=== PATIENT | female | born 1995 | race Caucasian/White ===

== ENCOUNTER 2017-01-26 15:01 | Emergency (ER) | payer OTHER ==
[2017-01-26 15:01] VITALS: BMI 21.2
--- NOTE | 2017-01-26 16:10 | C.PDOC ---
History Of Present Illness 21 y/o female presents to ED with c/o digitally and positionally reproducible left sided parasternal chest pain for 1 week. Patient notes pain developed after having a cough. Denies fever, chills, headache, nausea, vomiting, shortness of breath, diaphoresis, rash, or other associated symptoms. Time Seen by Provider: 01/26/17 15:59 Chief Complaint (Nursing): Chest Pain History Per: Patient History/Exam Limitations: no limitations Onset/Duration Of Symptoms: Days Current Symptoms Are (Timing): Still Present Quality: "Pain" Associated Symptoms: denies: Nausea, Dyspnea, Diaphoresis Exacerbating Factors: Movement Recent travel outside of the [place]: No Past Medical History Reviewed: Historical Data, Nursing Documentation, Vital Signs Vital Signs: Last Vital Signs Temp 98 F 01/26/17 16:24 Pulse 73 01/26/17 16:24 Resp 18 01/26/17 16:24 BP 99/72 L 01/26/17 16:24 Pulse Ox 99 01/26/17 16:24 - Medical History PMH: No Chronic Diseases Family History: States: Unknown Family Hx - Social History Hx Alcohol Use: Yes Hx Substance Use: No - Immunization History Hx Influenza Vaccination: No Hx Pneumococcal Vaccination: No Review Of Systems Except As Marked, All Systems Reviewed And Found Negative. Constitutional: Negative for: Fever, Chills, Sweats Cardiovascular: Positive for: Chest Pain Respiratory: Negative for: Shortness of Breath, Wheezing Gastrointestinal: Negative for: Nausea, Vomiting Skin: Negative for: Rash Physical Exam - Physical Exam Appears: Non-toxic, No Acute Distress Skin: Normal Color, Warm, Dry, No Rash Head: Atraumatic, Normacephalic Chest: Symmetrical, Tenderness (mild, left sided chest tenderness to palpation ) Cardiovascular: Rhythm Regular, No Murmur Respiratory: Normal Breath Sounds, No Rales, No Rhonchi, No Wheezing Gastrointestinal/Abdominal: Soft, No Tenderness Back: Normal Inspection Extremity: Normal ROM, Capillary Refill (< 2 sec. ) Neurological/Psych: Oriented x3, Normal Speech, Normal Cognition ED Course And Treatment ECG: Interpreted By Me ECG Rhythm: Sinus Rhythm ECG Interpretation: Normal Rate From EC (bpm) O2 Sat by Pulse Oximetry: 100 (RA) Pulse Ox Interpretation: Normal Medical Decision Making Medical Decision Making: digitally and positionally reproducable L parasternal discomfort x 1 week, after a cough which has since resolved, normal lung sounds, normal EKG, no rash - c/w Costochondritis. Disposition Doctor Will See Patient In The: Office Counseled Patient/Family Regarding: Studies Performed, Diagnosis - Disposition Referrals: [facility] [Outside] Disposition: HOME/ ROUTINE Disposition Time: 16:10 Condition: GOOD Additional Instructions: ice packs to affected area 1/2 hour per hour, nothing hot. Motrin 400-600 mg every 6h as needed Pepcid 20 mg @ night to prevent stomach irritation from the motrin no heavy lifting for 1 week Follow-up in our Clinic as needed Instructions: Costochondritis (ED) - Clinical Impression Clinical Impression: Chest discomfort
[2017-01-26 16:27] VITALS: BP 99/72; PULSE 73; RESP 18; TEMP 98
[2017-01-26 16:42] VITALS: O2SAT 100
--- NOTE | 2017-01-31 14:03 | CARD ---
APPROVED REPORT EKG Measurement Heart [id number] <Conclusion> Normal sinus rhythm with sinus arrhythmia Normal ECG
== END 2017-01-26 16:25 | disposition home or self-care (01) ==
LOC: C.ER 15:01
DX: R07.89 Other chest pain (principal)

== ENCOUNTER 2018-03-22 12:11 | Emergency (ER) | payer OTHER ==
[2018-03-22 12:18] VITALS: BMI 26.5
[2018-03-22 12:20] VITALS: TEMP 98.8
[2018-03-22] MEDS ORDERED: Alum-Mag Hydrox-Simethicone Susp (30 mL) PO STA (13:14)
[2018-03-22] MEDS ORDERED: Alum-Mag Hydrox-Simethicone Susp (30 mL) ONE (13:24)
--- NOTE | 2018-03-22 13:47 | C.PDOC ---
History Of Present Illness 22 y/o F c no PMHx p/w chest pain x 2 days. Pain is midchest, radiating down to epigastric area, sharp, intermittent, starting at rest while lying down, lasting about 30 seconds yesterday and about 2 minutes today. Denies any current symptoms. Denies fever, chills, cough, leg swelling, dysuria, abdominal pain. Time Seen by Provider: 03/22/18 12:30 Chief Complaint (Nursing): Chest Pain Past Medical History Vital Signs: Last Vital Signs Temp 98.8 F 03/22/18 12:18 Pulse 77 03/22/18 12:18 Resp 18 03/22/18 12:18 BP 107/74 03/22/18 12:18 Pulse Ox 100 03/22/18 13:48 Family History: States: Unknown Family Hx - Social History Hx Alcohol Use: Yes Hx Substance Use: No - Immunization History Hx Tetanus Toxoid Vaccination: No Hx Influenza Vaccination: No Hx Pneumococcal Vaccination: No Review Of Systems Except As Marked, All Systems Reviewed And Found Negative. Constitutional: Negative for: Fever Gastrointestinal: Negative for: Abdominal Pain Physical Exam - Physical Exam Additional Physical Exam Comments: Gen: NAD Head: NC/AT Eyes: PERRL ENT: MMM Neck: Supple Chest: Reproducible tenderness CV: Regular rate Lungs: CTA b/l Abd: Soft, NT Back: No CVA tenderness Skin: No rash Extremities: No edema Neuro: Alert, no focal deficit ED Course And Treatment - Laboratory Results Result Diagrams: 03/22/18 13:51 03/22/18 13:51 O2 Sat by Pulse Oximetry: 100 Medical Decision Making Medical Decision Making: Maalox administered. EKG NSR 80 bpm, no ST/T wave changes. CXR IMPRESSION: No active pulmonary disease. Cardiac enzymes negative in this young patient with atypical symptoms and pain for over 24 hours. Patient feels better, no active symptoms. Will discharge, f/ u primary care, instructed to return to ED for worsening pain, dyspnea, fever, hemoptysis, leg swelling, or any other problem. Disposition - Disposition Referrals: [facility] [Outside] Disposition: HOME/ ROUTINE Disposition Time: 14:42 Condition: STABLE Prescriptions: Famotidine/Ca Carb/Mag Hydrox [Pepcid Complete Tablet Chew] 1 each PO BID #[id number] tab.chew Instructions: Chest Pain That Is Not Caused by the Heart (DC) Forms: [employer] ([place]) - Clinical Impression Clinical Impression: Chest pain
[2018-03-22 13:55] LABS: BASO # 0.1 K/uL (0.0-0.2); BASO % 0.5 % (0.0-2.0); EOS # 0.1 K/uL (0.0-0.7); EOS % 1.1 % (0.0-4.0); LYMPH # 2.2 K/uL (1.0-4.3); MEAN CELL VOLUME 88.4 fL (81.0-99.0); MEAN CORPUSCULAR HEMOGLOBIN 31.1 pg (27.0-31.0); MEAN CORPUSCULAR HGB CONC 35.2 g/dL (33.0-37.0); MEAN PLATELET VOLUME 8.1 fL (7.2-11.7); MONO # 0.7 K/uL (0.0-0.8); MONO % 6.4 % (0.0-10.0); NEUT # 7.5 K/uL (1.8-7.0); NRBC % 0.1 % (0.0-2.0); RBC 4.51 Mil/uL (3.80-5.20); WHITE BLOOD COUNT 10.5 K/uL (4.8-10.8)
[2018-03-22 14:00] LABS: HCG,QUALITATIVE URINE NEGATIVE (NEGATIVE)
[2018-03-22 14:01] LABS: SQUAMOUS EPITHIAL 8 /hpf (0-5); URINE BACTERIA RARE (<OCC); URINE BILIRUBIN NEGATIVE (NEGATIVE); URINE BLOOD NEGATIVE (NEGATIVE); URINE CLARITY Hazy (Clear); URINE COLOR Yellow (YELLOW); URINE GLUCOSE (UA) NORMAL (Normal); URINE LEUKOCYTE ESTERASE NEG Leu/uL (Negative); URINE PROTEIN NEGATIVE (NEGATIVE); URINE UROBILINOGEN NORMAL mg/dL (0.2-1.0)
[2018-03-22 14:11] LABS: ALB/GLOB RATIO 1.2 (1.0-2.1); ALBUMIN 4.5 g/dL (3.5-5.0); ALT/SGPT 25 U/L (9-52); AST/SGOT 41 U/L (14-36); BLOOD UREA NITROGEN 6 mg/dL (7-17); CALCIUM 9.6 mg/dl (8.6-10.4); GFR AFRICAN-AMERICAN > 60; GFR NON-AFRICAN AMERICAN > 60; LIPASE 95 U/L (23-300)
[2018-03-22 14:23] LABS: CK-MB < 0.22 ng/mL (0.0-3.38)
[2018-03-22 15:16] VITALS: BP 106/72; PULSE 70; RESP 16; O2SAT 98
--- NOTE | 2018-03-25 15:09 | CARD ---
APPROVED REPORT EKG Measurement Heart [id number] <Conclusion> Normal sinus rhythm with sinus arrhythmia Normal ECG
== END 2018-03-22 14:59 | disposition home or self-care (01) ==
LOC: C.ER 12:11
DX: R07.9 Chest pain, unspecified (principal)
CPT/HCPCS: 71046; 80053; 81001; 82550; 82553; 83690; 84484; 84703; 85025; 87086; 93005; 96374; 99284; J2405